=== PATIENT | male | born 1960 | race African-American/Black ===

== ENCOUNTER → 2018-04-27 | Outpatient (CLI) | payer OTHER ==
--- NOTE | 2018-04-27 12:06 | RAD ---
Right hip, 2 views, 04/27/2018: HISTORY: Hip pain The hip joint space is well maintained with only minimal marginal spurring. No fracture or dislocation is identified. The periarticular soft tissues are unremarkable. IMPRESSION: 1. Minimal degenerative change at the right hip joint. 2. No acute abnormality is detected. Electronically signed by: Vitor Robison MD (04/27/2018 12:03 PM) [facility]
--- NOTE | 2018-04-27 12:13 | RAD ---
Lumbar spine, 2 views, 04/27/2018: HISTORY: Hip and back pain There is moderate disc space narrowing at L5-S1 with a vacuum disc phenomena and severe sclerotic changes along both sides of the disc space. Extensive anterior spurring is present at L5-S1. The other lumbar disc spaces are well-maintained with mild scattered spurs. There are moderate sclerotic changes involving the facet joints at L4-5 and L5-S1. No fracture or dislocation is evident. Moderate aortic calcific plaquing is present. IMPRESSION: 1. Severe degenerative disc disease at L5-S1. 2. Moderate facet joint arthropathy at L4-5 and L5-S1. 3. No acute bony abnormality is detected. Electronically signed by: Vitor Robison MD (04/27/2018 12:10 PM) [facility]
== END | disposition home or self-care (01) ==
LOC: RAD 09:32
PROVIDERS: ATTEND Neuromusculoskeletal Medicine, Sports Medicine
DX: M16.11 Unilateral primary osteoarthritis, right hip (principal); M51.37 Other intervertebral disc degeneration, lumbosacral region
CPT/HCPCS: 72100; 73502

== ENCOUNTER → 2020-11-15 | Day surgery (SDC) | payer MEDICAID ==
[~2020-11-15] MED LIST: BP MED; IV RINGERS,LACTATED 1000ML 1,000 ML IV SCH; NAPR500T8 PO; PROPOFOL 10 MG/ML (20ML) VIAL. IV ONE
[2020-11-15 09:15] VITALS: BP 173/81
== END | disposition home or self-care (01) ==
LOC: ENDOS 07:29
PROVIDERS: ATTEND Internal Medicine Gastroenterology
DX: D50.9 Iron deficiency anemia, unspecified (principal); K64.0 First degree hemorrhoids; K57.30 Diverticulosis of large intestine without perforation or abscess without bleeding; R58 Hemorrhage, not elsewhere classified; K29.50 Unspecified chronic gastritis without bleeding; I10 Essential (primary) hypertension; M19.90 Unspecified osteoarthritis, unspecified site; Z20.822 Contact with and (suspected) exposure to COVID-19; Z87.891 Personal history of nicotine dependence; Z79.899 Other long term (current) drug therapy; Z98.890 Other specified postprocedural states; Z72.89 Other problems related to lifestyle
CPT/HCPCS: 43235; 45378; 87426; J2704